=== PATIENT | female | born 1990 | race African-American/Black ===

== ENCOUNTER 2016-12-10 12:04 | Emergency (ER) | payer MEDICAID ==
[~2016-12-10] VITALS: Ht 149.9 cm; Wt 100.0 kg
[2016-12-10 15:59] LABS: BASOPHILS % 0.6 % (0.0-2.0); EOSINOPHILS % 1.7 % (0.0-5.0); HEMATOCRIT. 40.2 % (36.0-48.0); HEMOGLOBIN. 13.2 g/dL (12.0-16.0); LYMPHOCYTES % 23.2 % (20.0-50.0); MEAN CORPUSCULAR HEMOGLOBIN 27.2 pg (28.0-32.0); MEAN CORPUSCULAR HGB CONC 32.9 g/dL (31.0-37.0); MEAN CORPUSCULAR VOLUME 82.6 fL (81.0-99.0); MEAN PLATELET VOLUME 8.4 fl (7.4-10.4); NEUTROPHILS % 69.5 % (40.0-76.0); PLATELET 357 x1000/uL (130-400); RED BLOOD CELL COUNT 4.87 mill/uL (4.2-5.4); RED CELL DISTRIBUTION WIDTH 14.1 % (11.6-14.6); WHITE BLOOD COUNT 11.5 x1000/uL (4.5-11.0)
[2016-12-10 16:06] LABS: HCG SCREEN NEGATIVE
[2016-12-10 17:20] VITALS: BP 143/73
== END 2016-12-10 17:30 | disposition home or self-care (01) ==
LOC: ER 14:21
DX: R42 Dizziness and giddiness (principal); R51 Headache; F41.9 Anxiety disorder, unspecified; Z98.890 Other specified postprocedural states
CPT/HCPCS: 36415; 82962; 84703; 85025; 93005; 99285; Z7610

== ENCOUNTER 2017-06-18 12:05 | Emergency (ER) | payer OTHER, MEDICAID ==
[~2017-06-18] VITALS: Ht 144.8 cm; Wt 88.8 kg
[2017-06-18 14:31] LABS: BASOPHILS % 0.6 % (0.0-2.0); HEMATOCRIT. 37.4 % (36.0-48.0); HEMOGLOBIN. 12.2 g/dL (12.0-16.0); LYMPHOCYTES % 20.8 % (20.0-50.0); MEAN CORPUSCULAR HEMOGLOBIN 27.1 pg (28.0-32.0); MEAN CORPUSCULAR VOLUME 82.9 fL (81.0-99.0); MEAN PLATELET VOLUME 8.5 fl (7.4-10.4); MONOCYTES % 5.4 % (2.0-8.0); NEUTROPHILS % 71.2 % (40.0-76.0); PLATELET 312 x1000/uL (130-400); RED BLOOD CELL COUNT 4.51 mill/uL (4.2-5.4); RED CELL DISTRIBUTION WIDTH 13.8 % (11.6-14.6)
[2017-06-18 14:33] LABS: CARBON DIOXIDE 25 mEq/L (21-32); CHLORIDE 107 mEq/L (98-107)
[2017-06-18 14:47] LABS: GLUCOSE URINE NEGATIVE (NEGATIVE); KETONES URINE NEGATIVE (NEGATIVE); LEUKOCYTE ESTERASE URINE 2+ (NEGATIVE); NITRITE URINE NEGATIVE (NEGATIVE); OCCULT BLOOD URINE NEGATIVE (NEGATIVE); PH URINE 7.5 (4.5-8.0); PROTEIN URINE NEGATIVE (NEGATIVE)
[2017-06-18 14:48] LABS: CLARITY URINE CLOUDY (CLEAR); COLOR URINE YELLOW (YELLOW)
[2017-06-18 16:22] VITALS: BP 117/81
== END 2017-06-18 16:25 | disposition home or self-care (01) ==
LOC: ER 12:39
DX: J02.9 Acute pharyngitis, unspecified (principal); N39.0 Urinary tract infection, site not specified
CPT/HCPCS: 36415; 71010; 80053; 81001; 81025; 85025; 99285